=== PATIENT | male | born 2000 | race Caucasian/White ===

== ENCOUNTER 2022-08-25 04:21 | Emergency (ER) | payer OTHER ==
[~2022-08-25] VITALS: Ht 165.1 cm; Wt 77.1 kg
[2022-08-25 04:32] VITALS: BP_SYST 152
--- NOTE | 2022-08-25 04:36 | NUR ---
PT HERE C/O HEAD AND NECK PAIN S/P SLIPPED AND FALL HIT HEAD ON SOAP [place] AND ON METAL PART OF THE BATH TUB. PT DENIES KO. DENIES DIZZINESS. NO LACERATION NOTED. PMH;SUBSTANCE ABUSE CURRENTLY ON MEDS PT AAOX4, PENDING MD HINTON
--- NOTE | 2022-08-25 05:28 | NUR ---
Patient to ER bed REYES to gown for evaluation. Side rails up. Report given to Prieto METZ.
--- NOTE | 2022-08-25 05:28 | NUR ---
Chelsie fernandez in ED - 08/25/22 at 0637 by RAMANA Patient to ER bed 1 to dominic for evaluation. Side rails up. Report given to Prieto METZ.
--- NOTE | 2022-08-25 06:18 | NUR ---
DR. AGUILAR AT BEDSIDE ASSESSING AND SPEAKING TO PATIENT.
--- NOTE | 2022-08-25 06:46 | NUR ---
DC PT HOME AAOX4, NO SOB NOTED AND NAD, DC INSTRUCTION AND WORKNOTE WERE GIVEN TO PT AND HE VERBALIZED UNDERSTANDING. PT AMBULATED OUT OF DEPT WITH STEADY GAIT
== END 2022-08-25 05:28 | disposition home or self-care (01) ==
LOC: SED 04:21
DX: S09.90XA Unspecified injury of head, initial encounter (principal); Z79.899 Other long term (current) drug therapy; W18.2XXA Fall in (into) shower or empty bathtub, initial encounter; Y93.89 Activity, other specified; Y92.89 Other specified places as the place of occurrence of the external cause; Y99.8 Other external cause status
CPT/HCPCS: 99281